=== PATIENT | female | born 2005 | race Caucasian/White ===

== ENCOUNTER 2024-06-09 14:59 | Emergency (ER) | payer BC, SELFPAY ==
[2024-06-09 14:59] VITALS: BP 121/73; PULSE 83; RESP 14; TEMP 36.1; O2SAT 98; BMI 23.5
--- NOTE | 2024-06-09 15:14 | EX.ED.DYSGE1 ---
HPI History of Present Illness Chief Complaint: Lower Extremity Injury Narrative Narrative: Chief complaint and HPI: Right first toe pain. Patient is a 18-year-old female without any significant past medical history who presents for evaluation of right first toe pain. Patient states yesterday afternoon she kicked a soccer ball and developed pain in her right first toe. She states shortly later the toe swelled and bruised. She went to urgent care prior to arrival and they gave her a postop shoe. They did not have x-ray available. Patient presents to the ED for x-ray. She denies pain in the other toes, foot, ankle, heel. Denies any numbness or tingling. Review of systems: See HPI Medications: As listed on the chart Allergies: As listed on the chart PFSH: Per chart Vital signs: As listed on the chart. Reviewed. Physical exam: Gen: A&O x3, NAD Head: Normocephalic, atraumatic Eyes: No sclera icterus, conjunctiva clear ENT: Moist mucous membranes CV: Regular rate Resp: Nonlabored respiration Musc: Full ROM of all extremities including the right foot, no deformity but patient does have some mild swelling and ecchymosis to the right great toe (mostly on the medial aspect)-mildly tender to palpation, the rest of the toes, foot, heel, ankle nontender without trauma, Achilles intact, compartments soft, good capillary refill, DP/PT pulses +2 Skin: Warm, dry Neuro: Alert, oriented, grossly intact, sensation intact Psych: Cooperative, appropriate mood and affect [facility] Medical History (Updated 06/09/24 @ 15:07 by Amanda Arrieta) Asthma Home Medications ?Medication ?Instructions ?Recorded ?Last Taken ?Type NK 06/09/24 Unknown History Allergy/AdvReac Type Severity Reaction Status Date / Time No Known Allergies Allergy Verified 06/09/24 15:00 Family History no significant family his Surgical History no surgical history Social History Smoking Status: Never smoker EXAM Physical Exam Const Vital Signs: 06/09/24 14:59 Temperature 96.9 F L Temperature Source Temporal Pulse Rate 83 Respiratory Rate 14 Blood Pressure 121/73 H Blood Pressure Mean 89 Pulse Ox 98 Oxygen Delivery Method Room Air MDM MDM MDM Narrative Medical decision making narrative: Patient is a 18-year-old female without any significant past medical history who presents for evaluation of right first toe pain. Patient developed an injury yesterday after kicking a soccer ball. Went to urgent care was given a postop shoe but no x-ray available. Differential diagnosis includes but is not limited to contusion, fracture. Patient offered pain medication but declined. She already has the postop shoe with her. Will obtain x-rays to assess for fracture. X-ray of the toes personally reviewed and interpreted by me, ED physician. Patient has a distal phalanx fracture of the first right toe. This corresponds with the patient's ecchymosis location on physical exam. Per radiology there is likely intra-articular extension. Patient was updated of all of her results. Plan is for discharge home with her postop shoe. Follow-up with podiatry. Patient offered narcotics but declined. Tylenol and ibuprofen. RICE therapy given. Impression right: 1. Right first toe distal phalanx fracture, closed Radiography Diagnostic Testing: Clinical Impression(s) from Imaging Studies Toe X-Ray 06/09/24 15:15 IMPRESSION: Acute, nondisplaced distal phalanx fracture of the 1st right big toe, with likely intra-articular extension, however visualization is limited by positioning. Reading Location: [facility] Discharge Plan Triage Chief Complaint: Lower Extremity Injury ED Provider: Isaac Nassar Dx/Rx/DC Orders Prescriptions: No Action NK Primary Care Provider: GERMÁN DUENAS MD Referrals: GERMÁN DUENAS MD [Other] Print Language: Mexican
--- NOTE | 2024-06-09 15:15 | RAD_ITS ---
PROCEDURE: TOE(S) MIN 2 VIEWS 06/09/2024 REASON FOR EXAM: TRAUMA/PAIN TECHNIQUE: 3 view(s) of the right 1st toe COMPARISON: None. FINDINGS: Acute, nondisplaced fracture of the distal phalanx of the right 1st big toe, just distal to the 1st IP joint. Likely intra-articular extension, however visualization is limited by positioning. Normal alignment. Mild soft tissue swelling surrounding the 1st big toe. No radiopaque foreign body. RAD/Toe(s) Min 2 Views IMPRESSION: Acute, nondisplaced distal phalanx fracture of the 1st right big toe, with like ly intra-articular extension, however visualization is limited by positioning. Reading Location: [id number]
[2024-06-09 15:42] VITALS: BP 121/73; PULSE 83; RESP 14; TEMP 36.1; O2SAT 98
== END 2024-06-09 15:48 | disposition home or self-care (01) ==
PROVIDERS: Emergency Provider Surgery; Visit Provider Surgery
DX: S92.414A Nondisplaced fracture of proximal phalanx of right great toe, initial encounter for closed fracture (principal); X58.XXXA Exposure to other specified factors, initial encounter; Y93.66 Activity, soccer
CPT/HCPCS: 73660; 99282